=== PATIENT | female | born 1945 | race Caucasian/White ===

== ENCOUNTER 2018-02-05 06:20 | Day surgery (SDC) | payer OTHER, MEDICARE ==
[2018-02-04 10:30] VITALS: BMI 33.3
[2018-02-05] MEDS ORDERED: NITROGLYCERIN 2% OINTMENT - 1GM PACKET TD ONE ×2 (07:29→10:30)
[2018-02-05] MEDS ORDERED: BACITRACIN 15 GM TUBE TOPICAL OINTMENT ONE (07:29)
[2018-02-05] MEDS ORDERED: LIDOCAINE 1%/EPI 1:100000 (20 ML MULTI DOSE VIAL) ONE ×3 (07:30→10:10)
[2018-02-05] MEDS ORDERED: MINERAL OIL 25 ML OIL ONE (08:36)
[2018-02-05] MEDS ORDERED: LIDOCAINE 1%/EPI 1:100000 (20 ML MULTI DOSE VIAL) IJ ONE ×2 (08:38)
[2018-02-05] MEDS ORDERED: DESFLURANE GAS 240 ML BOTTLE IH ONE (09:06)
[2018-02-05] MEDS ORDERED: GELATIN, ABSORBABLE 100 EACH SPONGE TP ONE ×2 (10:00→11:01)
[2018-02-05] MEDS ORDERED: THROMBIN (BOVINE) 5,000 UNIT VIAL TP ONE (10:00)
[2018-02-05] MEDS ORDERED: OXYMETAZOLINE 0.05% NASAL SOLUTION 15 ML BOTTLE NS ONE ×2 (10:15→11:13)
[2018-02-05] MEDS ORDERED: BACITRACIN 15 GM TUBE TOPICAL OINTMENT TP ONE (10:15)
[2018-02-05] MEDS ORDERED: oxyCODONE HCL 5 MG TABLET PO PRN ×4 (10:55→12:14)
[2018-02-05] MEDS ORDERED: ONDANSETRON 4 MG/2 ML VIAL IVPUSH PRN (10:55)
[2018-02-05] MEDS ORDERED: LACTATED RINGERS SOLUTION 1,000 ML IV SCH ×2 (11:00→12:15)
[2018-02-05] MEDS ORDERED: THROMBIN (RECOMBINANT) 5,000 UNIT VIAL TP ONE (11:01)
[2018-02-05] MEDS ORDERED: ACETAMINOPHEN 325 MG TABLET (FP) PO SCH (12:00)
[2018-02-05] MEDS ORDERED: ONDANSETRON 4 MG/2 ML VIAL ONE (12:09)
[2018-02-05] MEDS ORDERED: ONDANSETRON 4 MG/2 ML VIAL IVPUSH ONE (12:13)
[2018-02-05] MEDS ORDERED: ONDANSETRON 4 MG/2 ML VIAL IVPB PRN (12:14)
--- NOTE | 2018-02-05 12:18 | OP ---
Operative Note - Note: Operative Date: 02/05/18 Pre-Operative Diagnosis: full thickness nasal defect from basal cell carcinoma Operation: right nasolabial flap with split thickness skin graft from right thigh to flap Post-Operative Diagnosis: Same as Pre-op Surgeon: Eben Wan Anesthesia: General, Local Operative Report Dictated: Yes
[2018-02-05] MEDS ORDERED: oxyCODONE HCL 5 MG TABLET ONE (13:51)
[2018-02-05 15:17] VITALS: BP 118/64; PULSE 61; TEMP 98
--- NOTE | 2018-02-05 15:49 | OP ---
DATE OF OPERATION: 02/05/2018 TITLE OF PROCEDURE: 1. Right-sided interpolated nasolabial flap, stage 1. 2. Preparation of full-thickness wound to the right side of the nose for flap and skin graft reconstruction by excision of entire ulcer and hemostasis. 3. A 10-square centimeter split-thickness skin graft from the right anterior thigh to the free edge and internal surface of the flap reconstruction of the nose. ATTENDING SURGEON: Razia Meeks MD ANESTHESIA: General endotracheal anesthesia with an additional 25 mL of 1% lidocaine and 1:100,000 epinephrine injected into the operative sites. DESCRIPTION OF PROCEDURE: Patient had been marked in the holding area, awake and aware of the surgical plan, incisions, and resulting scars, understands, and agrees to proceed. The procedure is as follows. Wounds are marked. The flap is planned on the right nasolabial fold. Patient is brought to the operating room and placed in a supine position. Position is carefully checked by surgical and anesthesia teams. The patient is then prepped and draped. A timeout is called. Patient, procedure, side, and sites are verified. At this point, the skin graft is harvested in 2 separate strips on the right anterior thigh using a Fei dermatome at 18 one-thousandths of an inch. This is pie-crusted and prepared in a moist gauze. After this, the flap on the right cheek is elevated from distal to proximal superficial to the muscular aponeurosis. It is elevated by gentle spreading under direct vision. The flap is mobilized to a point where it can be transferred without tension to the defect. With flap positioned, the area for the internal lining is marked. Skin graft is prepared and it is sewn to the borders of the mucosa on the internal surface of the nose using a 5-0 chromic gut suture. It is likewise sewn to the free lateral and medial edges of the flap with a running 6-0 chromic gut suture so it is secured to the internal aspect of the defect as well as to the free raw surface of the flap. The flap is then trimmed and secured to the defect after the defect is fully excised in preparation for flap reconstruction and hemostasis is carefully achieved with a combination of Bovie cautery and suture ligation. At this point, the free margins of the flap are secured to this with a series of interrupted 5-0 nylon suture. The donor site for the flap is then closed leaving adequate space for tension-free transition of the flap. This is done with a series of interrupted 4-0 Monocryl suture buried deep dermal, followed by a running 5-0 nylon suture. Hemostasis meticulously achieved. The donor site for the skin graft is dressed with Surgicel, thrombin-soaked Gelfoam, Xeroform, Telfa, and ABD gauze. The right nostril is packed with bacitracin and Xeroform. The flap is routinely dressed with nitroglycerin paste, bacitracin, Xeroform, 4 x 4 gauze, and Hypafix tape. The patient awoke from anesthesia, having tolerated procedure well, transferred to recovery without complication. RAZIA MEEKS M.D. [id number]
[2018-02-05] MEDS ORDERED: oxyCODONE HCL 10 MG SUSTAINED ACTING TABLET PO SCH (22:00)
[2018-02-05] MEDS ORDERED: GABAPENTIN 300 MG CAPSULE (FP) PO SCH (22:00)
== END 2018-02-05 15:00 | disposition home or self-care (01) ==
LOC: FASU 06:20
PROVIDERS: ATTEND Plastic Surgery
PROC: 0HR1X74 Replacement of Face Skin with Autologous Tissue Substitute, Partial Thickness, External Approach (ICD-10-PCS; 2018-02-05)
PROC: 0HX1XZZ Transfer Face Skin, External Approach (ICD-10-PCS; 2018-02-05)
PROC: 0HR1X73 Replacement of Face Skin with Autologous Tissue Substitute, Full Thickness, External Approach (ICD-10-PCS; principal; 2018-02-05 08:30)
DX: C44.311 Basal cell carcinoma of skin of nose (principal)
CPT/HCPCS: 94760

== ENCOUNTER 2018-03-25 07:32 | Day surgery (SDC) | payer OTHER, MEDICARE ==
[2018-03-20 15:35] VITALS: BMI 33.9
[2018-03-25] MEDS ORDERED: PROPOFOL 20 ML ONE (08:53)
[2018-03-25] MEDS ORDERED: NITROGLYCERIN 2% OINTMENT - 1GM PACKET TD ONE (09:47)
[2018-03-25] MEDS ORDERED: OXYMETAZOLINE 0.05% NASAL SOLUTION 15 ML BOTTLE NS ONE (09:47)
[2018-03-25] MEDS ORDERED: BACITRACIN 15 GM TUBE TOPICAL OINTMENT ONE (09:48)
[2018-03-25] MEDS ORDERED: DEXAMETHASONE SOD PHOSPHATE 4 MG/1 ML VIAL ONE (10:27)
[2018-03-25] MEDS ORDERED: ceFAZolin SODIUM 1 GM VIAL ONE (10:27)
[2018-03-25] MEDS ORDERED: ONDANSETRON 4 MG/2 ML VIAL ONE (10:27)
[2018-03-25] MEDS ORDERED: LIDOCAINE 1%/EPI 1:100000 (20 ML MULTI DOSE VIAL) IJ ONE (10:29)
[2018-03-25] MEDS ORDERED: ONDANSETRON 4 MG/2 ML VIAL IVPUSH PRN (11:58)
[2018-03-25] MEDS ORDERED: ACETAMINOPHEN 325 MG TABLET (FP) PO PRN (11:58)
[2018-03-25] MEDS ORDERED: ONDANSETRON 4 MG/2 ML VIAL IVPB PRN (12:17)
[2018-03-25] MEDS ORDERED: oxyCODONE HCL 5 MG TABLET PO PRN ×2 (12:17)
--- NOTE | 2018-03-25 12:21 | OP ---
Operative Note - Note: Operative Date: 03/25/18 Pre-Operative Diagnosis: basal cell carcinoma Operation: division and inset of nasolabial flap Post-Operative Diagnosis: Same as Pre-op Surgeon: Eben Wan Anesthesia: General
[2018-03-25] MEDS ORDERED: LACTATED RINGERS SOLUTION 1,000 ML IV SCH (12:30)
[2018-03-25 13:10] VITALS: TEMP 98
[2018-03-25] MEDS ORDERED: ACETAMINOPHEN 325 MG TABLET (FP) ONE (13:43)
[2018-03-25 14:51] VITALS: BP 142/81; PULSE 61
--- NOTE | 2018-03-25 21:34 | OP ---
DATE OF OPERATION: 03/25/2018 TITLE OF PROCEDURE: Division and inset of right-sided nasolabial flap nasal reconstruction. PREOPERATIVE DIAGNOSIS: Basal cell carcinoma to nose. POSTOPERATIVE DIAGNOSIS: Basal cell carcinoma to nose. ATTENDING SURGEON: Eben Wan MD ASSISTANTS: None. ANESTHESIA: General endotracheal anesthesia with a total of 10 mL of 1% lidocaine and 1:100,000 epinephrine. The patient is marked in the holding area, awake and aware of incisions and resulting scars. Risks, benefits, and alternatives to the procedure are discussed, understood, and agree to proceed. DESCRIPTION OF PROCEDURE: Patient is brought to the operating room, placed in a supine position. Sequential compression and NAOMI hose are applied. Position is carefully checked by surgical and anesthesia team. She is given a gram of Ancef preoperatively. She is injected off the field with the local anesthetic. After which, she is prepped and draped in standard surgical fashion. A timeout is called. Patient, procedure, sites, and sides are verified. At this point, the flap is divided near its base, and the base of the flap is excised in an elliptical pattern along the nasolabial fold. This is just at the level of the skin. Hemostasis is achieved. The lateral cheek skin is undermined slightly for closure. Closure is then performed with a series of interrupted, buried, deep dermal 4-0 Monocryl suture, following by a running 5-0 nylon suture in several interrupted elements. At this point, the flap is then inset onto the nose. The skin graft, on the undersurface of the flap which is tunneled into the nose, is divided at its point where it enters into the nasal lining. A repair is performed here with a series of interrupted 5-0 chromic gut suture. The remainder of the flap is unfurled and is defatted. The deep tissue of the flap is secured to the undersurface of the nasal wound with a 4-0 Monocryl suture, decreasing the bulk of the flap. The flap is then trimmed to contour to its defect, and it is secured to the base of the defect with a series of interrupted 6-0 nylon suture. The flap is pink and viable at the end of this procedure. It is dressed routinely with nitropaste, and the donor site is dressed with bacitracin, Xeroform, 4 x 4, and Hypafix tape. Patient awakened from anesthesia, tolerated procedure well, transferred to Recovery without complication. Florian MICHELLE/[id number]
== END 2018-03-25 14:30 | disposition home or self-care (01) ==
LOC: FASU 07:32
PROVIDERS: ATTEND Plastic Surgery
PROC: 0H81XZZ Division of Face Skin, External Approach (ICD-10-PCS; principal; 2018-03-25 09:00)
DX: C44.311 Basal cell carcinoma of skin of nose (principal)
CPT/HCPCS: 94760